=== PATIENT | female | born 1955 | race Caucasian/White ===

== ENCOUNTER → 2016-11-28 | Outpatient (CLI) | payer BC, OTHER ==
--- NOTE | 2016-11-28 11:02 | RAD ---
DATE: 11/28/2016 EXAM: MAMMO ANGELA SCREENING BILATERAL HISTORY: Routine screening COMPARISON: 11/09/2015, 11/03/2014 This study was interpreted with the benefit of Computerized Aided Detection (CAD). FINDINGS: 2-D and 3-D tomosynthesis imaging was performed in CC and MLO projections. The breasts are predominantly fatty replaced. There is a 4 mm smooth nodule in the inferior lateral aspect of the right breast best seen on axial angela image 18. It was not evident on older studies such is 01/22/2013, although that could be due to technical differences including the higher sensitivity of today's angela exam. There is also a small smooth elongated opacity in the anteromedial aspect of the right breast at the 3:00 location. This appears to be unchanged since previous studies. No new or enlarging breast densities are seen on the left. Minimal benign type calcifications are present bilaterally. No suspicious microcalcifications have developed. IMPRESSION: Small right breast nodules, one of which may be new. Sonographic evaluation is suggested. BI-RADS CATEGORY: 0 INCOMPLETE: NEEDS ADDITIONAL IMAGING EVALUATION AND/OR PRIOR MAMMOGRAMS FOR COMPARISON. RECOMMENDED FOLLOW-UP: ADD ADDITIONAL IMAGING PQRS compliance statement: Patient information was entered into a reminder system with a target due date for the next mammogram. Mammography is a sensitive method for finding small breast cancers, but it does not detect them all and is not a substitute for careful clinical examination. A negative mammogram does not negate a clinically suspicious finding and should not result in delay in biopsying a clinically suspicious abnormality. "Our facility is accredited by the [employer] Mammography [employer]."
== END | disposition home or self-care (01) ==
LOC: MAMMO 08:58
PROVIDERS: ATTEND Physician Assistant Medical
DX: Z12.31 Encounter for screening mammogram for malignant neoplasm of breast (principal)
CPT/HCPCS: 77063; G0202; 77067

== ENCOUNTER → 2016-12-06 | Outpatient (CLI) | payer BC, OTHER ==
--- NOTE | 2016-12-06 11:23 | RAD ---
Exam performed: Right breast ultrasound. History: Follow-up nodule seen on the screening mammogram. Date of service: 12/06/16. Comparison: Screening bilateral mammogram from 11/28/16 Discussion: Sonographic evaluation of the right breast is performed in the inferior lateral quadrant from 7:00 to 9:00 position as well as at 3 to 5:00 position to correspond to the areas of mammographic concern. There is a well-defined 3.4 x 3.5 x 2.3 mm hypodense anechoic nodule at 8:00 position zone 2, 2.5 cm from the nipple. There is also a 2.9 x 2.8 mm hypo to anechoic nodule with internal echoes at 7:00 position zone 2, 4 cm from the nipple. There is good through transmission, no vascularity is identified. Scanning in the medial right breast from 3 to 5:00 position demonstrates no solid or cystic mass lesion. Impression: Tiny subcentimeter anechoic nodules with internal echoes in the right breast between 7:00 position as outlined above. One of these corresponds to the mammographic nodule. No definite sonographic abnormality seen between 3 to 5:00 position to correspond to the area of concern. 6 months follow-up right breast mammogram and ultrasound may be obtained to ensure interval stability. BI-RADS 3. Probably benign findings.
== END | disposition home or self-care (01) ==
LOC: US 10:05
PROVIDERS: ATTEND Physician Assistant Medical
DX: N63 Unspecified lump in breast (principal)
CPT/HCPCS: 76641

== ENCOUNTER → 2017-06-11 | Outpatient (CLI) | payer BC, OTHER ==
--- NOTE | 2017-06-11 11:35 | RAD ---
DATE: June 11, 2017 EXAM: MAMMO ANGELA DIAG RT, BREAST RIGHT HISTORY: 6 month follow-up of probably benign findings COMPARISON: Ultrasound and mammogram from November 2016. Screening mammogram from November 09, 2015. TECHNIQUE: 2D digital CC and MLO views were obtained. 3D tomosynthesis imaging was performed in the CC and MLO projections. Imaging is limited to the right breast. Limited right breast ultrasound was performed as well. This study was interpreted with the benefit of Computerized Aided Detection (CAD). FINDINGS: The breast parenchyma demonstrates scattered fibroglandular densities, category B. Several benign-appearing nodules are again noted. There is no worrisome mass or area of architectural distortion. There are no suspicious groupings of microcalcifications . There are a few benign-appearing calcifications. Ultrasound redemonstrates complex cysts at the 8:00 position 2.5 cm from the nipple measuring up to 4 mm in size. The potential cyst at the 7:00 position on prior study is not visualized on today's exam. This cyst appears to have resolved. IMPRESSION: Probably benign findings. BI-RADS CATEGORY: 3 PROBABLE BENIGN-SHORT TERM F/U RECOMMENDED FOLLOW-UP: 6M 6 MONTH FOLLOW-UP . Imaging in 6 months will be a 6 month follow-up of the right breast and annual screening of the left breast. PQRS compliance statement: Patient information was entered into a reminder system with a target due date for the next mammogram. Mammography is a sensitive method for finding small breast cancers, but it does not detect them all and is not a substitute for careful clinical examination. A negative mammogram does not negate a clinically suspicious finding and should not result in delay in biopsying a clinically suspicious abnormality. "Our facility is accredited by the [employer] Mammography Program."
== END | disposition home or self-care (01) ==
LOC: MAMMO 09:54
PROVIDERS: ATTEND Physician Assistant Medical
DX: N63.10 Unspecified lump in the right breast, unspecified quadrant (principal); R92.1 Mammographic calcification found on diagnostic imaging of breast
CPT/HCPCS: 76641; G0206; G0279; 77061; 77065

== ENCOUNTER → 2018-01-01 | Outpatient (CLI) | payer BC, OTHER ==
--- NOTE | 2018-01-01 10:08 | RAD ---
DATE: 01/01/2018 EXAM: MAMMO ANGELA JOSELITO HENRY, BREAST RIGHT HISTORY: 6 month follow-up COMPARISON: 06/11/2017, 11/28/2016, 11/09/2015 This study was interpreted with the benefit of Computerized Aided Detection (CAD). The breast parenchyma is primarily fatty replaced. Breast parenchyma level density A. FINDINGS: 2-D and 3-D tomosynthesis imaging was performed in CC and MLO projections. On right CC angela image #10 there is a small lobulated opacity which is unchanged. A small smooth elongated opacity in the lateral aspect of the right breast as seen on CC image #38 is also unchanged. No new or enlarging breast densities are seen. Minimal benign type calcifications present. No suspicious microcalcifications have developed. Right breast ultrasound, 01/01/2018: A targeted ultrasound exam was performed at the 8:00 location where a small lesion was evident on the 06/11/2017 exam. This small hypoechoic structure is redemonstrated. It is best defined in the antiradial projection where it demonstrates a triangular configuration. There are low level internal echoes. It is unchanged in size and configuration since 01/01/2018. It currently measures 2 x 3 x 4 mm. Is probably a complicated cyst or small fibrocystic lesion. IMPRESSION: 1. Unchanged probably benign right breast nodules. 2. Follow-up right breast ultrasound and bilateral mammography in 6 months is suggested. BI-RADS CATEGORY: 3 PROBABLY BENIGN FINDING(S)-SHORT INTERVAL FOLLOW-UP SUGGESTED RECOMMENDED FOLLOW-UP: 6M 6 MONTH FOLLOW-UP PQRS compliance statement: Patient information was entered into a reminder system with a target due date for the next mammogram. Mammography is a sensitive method for finding small breast cancers, but it does not detect them all and is not a substitute for careful clinical examination. A negative mammogram does not negate a clinically suspicious finding and should not result in delay in biopsying a clinically suspicious abnormality. "Our facility is accredited by the [employer] Mammography Program."
== END | disposition home or self-care (01) ==
LOC: MAMMO 08:39
PROVIDERS: ATTEND Physician Assistant Medical
DX: R92.8 Other abnormal and inconclusive findings on diagnostic imaging of breast (principal)
CPT/HCPCS: 76641; 77066; G0279; 77062

== ENCOUNTER → 2018-09-09 | Outpatient (CLI) | payer MEDICARE, BC, OTHER ==
--- NOTE | 2018-09-09 15:12 | RAD ---
DATE: 09/09/2018 EXAM: MAMMO ANGELA JOSELITO HENRY, BREAST BILATERAL HISTORY: 6 month follow-up COMPARISON: 01/01/2018 This study was interpreted with the benefit of Computerized Aided Detection (CAD). Breast Density: FATTY The breast parenchyma is primarily fatty replaced. Breast parenchyma level density A. FINDINGS: 2-D and 3-D tomosynthesis imaging was performed in CC and MLO projections. On the right cc angela image #10 there is a small lobulated nodule evident just lateral to the midline which appears unchanged. There is a small elongated nodule present anteromedially in the right breast best seen on CC angela image #35 which is also unchanged. This was described as being located laterally on the previous report, however, it actually lies medially. These nodules appear unchanged since an exam from 11/28/2016. No new or enlarging breast densities are seen. Minimal benign type calcifications present. No suspicious microcalcifications have developed. Right breast ultrasound, 09/09/2018: A targeted ultrasound exam of the right breast at 8:00 location was performed for follow-up of a prior ultrasound abnormality. At the 8:00 location approximately 2.5 cm from the nipple there is a small hypoechoic nodule. It is wider than tall. It measures 3 x 4 x 3 mm, similar to the measurements of the 06/11/2017 exam. There has been no definite change in size. There is refractory shadowing along its margins on some of these images. IMPRESSION: 1.Stable, probably benign right breast nodules as described above. Follow-up right mammography and right breast ultrasound in 6 months is suggested. 2. Unremarkable left mammograms. BI-RADS CATEGORY: 3 PROBABLY BENIGN FINDING(S)-SHORT INTERVAL FOLLOW-UP SUGGESTED RECOMMENDED FOLLOW-UP: 6M 6 MONTH FOLLOW-UP PQRS compliance statement: Patient information was entered into a reminder system with a target due date for the next mammogram. Mammography is a sensitive method for finding small breast cancers, but it does not detect them all and is not a substitute for careful clinical examination. A negative mammogram does not negate a clinically suspicious finding and should not result in delay in biopsying a clinically suspicious abnormality. "Our facility is accredited by the [employer] Mammography Program."
== END | disposition home or self-care (01) ==
LOC: MAMMO 13:43
PROVIDERS: ATTEND Physician Assistant Medical
DX: N63.13 Unspecified lump in the right breast, lower outer quadrant (principal)
CPT/HCPCS: 76641; 77066; G0279; 77062

== ENCOUNTER → 2019-03-14 | Outpatient (CLI) | payer MEDICARE, BC, OTHER ==
--- NOTE | 2019-03-16 08:26 | RAD ---
DATE: 03/14/2019 1:14 PM EXAM: MAMMO ANGELA DIAG RT, BREAST RIGHT HISTORY: short-term imaging followup of a probably benign finding in the right breast. COMPARISON: 09/09/2018, 01/01/2018 06/11/2017, 12/06/2016 Right CC and MLO views were performed. Right breast tomosynthesis was performed in CC and MLO projections. This study was interpreted with the benefit of Computerized Aided Detection (CAD). FINDINGS: Breast Density: FATTY The Breast Parenchyma is primarily fatty replaced. Breast parenchyma level density A. The nodular densities in the right breast are essentially unchanged. Therefore these were been further evaluated by ultrasound. ULTRASOUND FINDINGS: Targeted ultrasound of the right breast 8:00 position, 2.5 cm from the nipple: A 3 x 2 x 3 mm small hypoechoic nodule is seen, and a parallel orientation. Accounting for differences in measurement techniques, this is stable. IMPRESSION: Given the two-year stability of these findings, return to routine screening mammography is recommended. BI-RADS CATEGORY: 2 BENIGN FINDING(S) RECOMMENDED FOLLOW-UP: 12M 12 MONTH FOLLOW-UP Annual screening mammography is recommended, unless clinically indicated sooner based on symptoms or change in physical exam. PQRS compliance statement: Patient information was entered into a reminder system with a target due date for the next mammogram. Mammography is a sensitive method for finding small breast cancers, but it does not detect them all and is not a substitute for careful clinical examination. A negative mammogram does not negate a clinically suspicious finding and should not result in delay in biopsying a clinically suspicious abnormality. "Our facility is accredited by the [employer] Mammography Program."
== END | disposition home or self-care (01) ==
LOC: MAMMO 12:52
PROVIDERS: ATTEND Physician Assistant Medical
DX: N63.13 Unspecified lump in the right breast, lower outer quadrant (principal)
CPT/HCPCS: 76641; 77065; G0279; 77061

== ENCOUNTER → 2020-03-25 | Outpatient (CLI) | payer MEDICARE, BC, OTHER ==
--- NOTE | 2020-03-25 17:59 | RAD ---
DATE: 03/25/2020 9:49 AM EXAM: MAMMO ANGELA SCREENING BILATERAL HISTORY: Screening COMPARISON: 09/09/2008 Bilateral CC and MLO views of the breasts were performed. Bilateral breast tomosynthesis was performed in CC and MLO projections. This study was interpreted with the benefit of Computerized Aided Detection (CAD). FINDINGS: Breast Density: FATTY The Breast Parenchyma is primarily fatty replaced. Breast parenchyma level density A. No suspicious masses, microcalcifications or architectural distortion is present to suggest malignancy in either breast. The visualized axillae are unremarkable. IMPRESSION: No mammographic evidence of malignancy. BI-RADS CATEGORY: 1 NEGATIVE RECOMMENDED FOLLOW-UP: 12M 12 MONTH FOLLOW-UP Annual screening mammography is recommended, unless clinically indicated sooner based on symptoms or change in physical exam. PQRS compliance statement: Patient information was entered into a reminder system with a target due date for the next mammogram. Mammography is a sensitive method for finding small breast cancers, but it does not detect them all and is not a substitute for careful clinical examination. A negative mammogram does not negate a clinically suspicious finding and should not result in delay in biopsying a clinically suspicious abnormality. "Our facility is accredited by the [employer] Mammography Program."
== END | disposition home or self-care (01) ==
LOC: MAMMO 09:20
PROVIDERS: ATTEND Physician Assistant Medical
DX: Z12.31 Encounter for screening mammogram for malignant neoplasm of breast (principal)
CPT/HCPCS: 77063; 77067

== ENCOUNTER → 2020-10-14 | Outpatient (CLI) | payer MEDICARE, BC, OTHER ==
--- NOTE | 2020-10-14 08:59 | RAD ---
EXAM: Bilateral upper extremity venous Doppler. HISTORY: Bilateral arm pain COMPARISON: None. FINDINGS: Grayscale and Doppler analysis of the right and left upper extremity deep venous system was performed with graded compression and augmentation. The internal jugular, subclavian, axillary, brac hial, basilic, radial and ulnar veins were assessed. There is no evidence of deep venous thrombosis. IMPRESSION: 1. No evidence of deep venous thrombosis in the bilateral upper extremities. Electronically signed by: Antonino Chávez MD (10/14/2020 8:56 AM) [id number]
== END ==
LOC: US 08:19
PROVIDERS: ATTEND Nurse Practitioner Family
DX: M79.601 Pain in right arm (principal); M79.602 Pain in left arm
CPT/HCPCS: 93970

== ENCOUNTER → 2020-11-15 | Outpatient (CLI) | payer MEDICARE, BC, OTHER ==
--- NOTE | 2020-11-15 11:39 | RAD ---
EXAM: BONE SCINTIGRAPHY. HISTORY: History of malignancy, left humeral lesion. TECHNIQUE: Following the intravenous injection of 20 mCi of Tc-99m labeled methylene diphosphonate (M DP), delayed images of the whole body were performed in anterior and posterior projections. COMPARISON: 10/22/2020. FINDINGS: There are no foci of intense uptake suggestive of osseous metastatic disease. Specifically, there is no scintigraphic correlate for the small left proximal humeral lesion of concern. Elsewhere, uptake along the left aspect of L4-5 is likely discogenic. Additional uptake at both bustillo las, the right ankle and the right greater than left mid feet are likely degenerative. Lesser degener ative uptake is noted at the right first toe, the left first metatarsophalangeal joint, the right gle nohumeral joint, both sternoclavicular joints, and within the lower cervical spine. IMPRESSION: 1. No scintigraphic correlate for the left proximal humeral lesion, favoring benignity. A follow-up r adiograph could be considered in 3-6 months to demonstrate stability if there is persistent concern. 2. Degenerative uptake as above. Electronically signed by: Rosalie Stokes MD (11/15/2020 11:36 AM) [id number]
== END ==
LOC: NM 07:52
PROVIDERS: ATTEND Internal Medicine Hematology & Oncology
DX: C91.10 Chronic lymphocytic leukemia of B-cell type not having achieved remission (principal)
CPT/HCPCS: 78306; A9503

== ENCOUNTER → 2021-02-13 | Outpatient (CLI) | payer MEDICARE, BC, OTHER ==
--- NOTE | 2021-02-13 10:26 | RAD ---
Exam performed: CT scan of the head without contrast. Date of Service: 02/13/21. Comparison: None available. Clinical History: Headache. Technique: Helical acquisitions are obtained from the foramen magnum to the vertex without intravenou s administration of contrast. Findings: The ventricles are midline without evidence of dilatation. Normal mansfield-white differentiation is maint ained. There is no extra axial fluid collection, intraparenchymal hemorrhage or mass lesion. The vi sualized portions of the orbits, paranasal sinuses and the mastoid air cells appear clear. The jamil rium is intact. Impression: 1. No acute intracranial process detected. PQRS Compliance Statement: One or more of the following individualized dose reduction techniques were utilized for this examinat ion: 1. Automated exposure control 2. Adjustment of the mA and/or kV according to patient size 3. Use of iterative reconstruction technique Electronically signed by: Jessica Molina MD (02/13/2021 10:23 AM) [id number]
== END ==
LOC: CT 09:50
PROVIDERS: ATTEND Nurse Practitioner Family
DX: R51.9 Headache, unspecified (principal)
CPT/HCPCS: 70450

== ENCOUNTER → 2021-02-24 | Outpatient (CLI) | payer MEDICARE, OTHER, BC ==
--- NOTE | 2021-02-24 16:29 | RAD ---
EXAM: 3 Views Left Shoulder DATE: 02/24/2021 4:05 PM INDICATION: Reason: LEFT SHOULDER PAIN / Spl. Instructions: / History: COMPARISON: No Prior FINDINGS: There is no evidence for acute fracture or dislocation. AC joint is congruent. 1 cm lucent lesion wit hin the proximal left femoral shaft, uncertain clinical significance although there may be associated cortical thinning. Therefore further evaluation with MRI is recommended. Humeral head is not high ri ding. IMPRESSION: 1. No acute fracture or dislocation. 2. 1 cm lucent lesion within the proximal left femoral shaft, uncertain clinical significance althou gh there may be associated cortical thinning. Therefore further evaluation with MRI is recommended. Electronically signed by: Brennen Sheldon MD (02/24/2021 4:27 PM) [id number]
== END ==
LOC: RAD 15:58
PROVIDERS: ATTEND Physician Assistant
DX: M25.512 Pain in left shoulder (principal)
CPT/HCPCS: 73030

== ENCOUNTER → 2021-08-30 | Outpatient (CLI) | payer MEDICARE, BC, OTHER ==
--- NOTE | 2021-08-30 11:54 | RAD ---
BILATERAL SCREENING MAMMOGRAM History: Routine screening. Comparison: Most recently on 03/25/2020. Technique: Routine 2D and 3D tomosynthesis digital mammogram views were obtained bilaterally. Interpr etation was assisted with the use of computer-aided detection. Findings: Breast Tissue Density A : The breasts are almost entirely fatty. Scattered nodular asymmetries/masses are without significant change from 2020. A few microcalcificati ons with benign morphology and distribution. No newly seen mass, architectural distortion or suspicio us microcalcifications. IMPRESSION: No mammographic evidence of malignancy. Recommend routine screening mammography in one year. BI-RADS category 2: Benign findings. Patient information is entered into the reminder system with a target due date for the next screening mammogram. "Our facility is accredited by the [employer] Mammography Program." Electronically signed by: JUSTINA MELVIN MD (08/30/2021 11:52 AM) [id number]
== END ==
LOC: MAMMO 09:15
PROVIDERS: ATTEND Physician Assistant Medical
DX: Z12.31 Encounter for screening mammogram for malignant neoplasm of breast (principal)
CPT/HCPCS: 77063; 77067